=== PATIENT | male | born 1965 | race Hispanic/Latino ===

== ENCOUNTER 2018-07-29 11:49 | Emergency (ER) | payer OTHER ==
[2018-07-29] MEDS ORDERED: FENTANYL CITR 100 MCG/2 ML ONE (12:30)
[2018-07-29] MEDS ORDERED: NA CHLORIDE 0.9% 1,000 ML ONE (12:30)
[2018-07-29] MEDS ORDERED: CEFAZOLIN/SWI 1gm 1 GM/10 ML SYR ONE (12:31)
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
[2018-07-29 13:23] LABS: Absolute Lymphocytes (CBC) 2.1 K/uL (0.7-4.9); Absolute Monocytes 0.5 K/uL (0.1-1.3); Basophils % 0.5 % (0-1.3); Eosinophils % 1.5 % (0-4.4); Hematocrit 46.5 % (39.6-49.0); Lymphocytes % 23.9 % (15.3-44.8); MCH 30.1 pg (27.0-35.0); MCV 87.4 fL (80-100); MPV 9.2 fL (7.6-11.3); RBC Red Blood Cell Count 5.32 M/uL (4.33-5.43)
[2018-07-29 13:24] LABS: Potassium 3.4 mmol/L (3.5-5.1)
[2018-07-29] MEDS ORDERED: TETANUS & DIPHTHERIA TOX,ADULT 0.5 ML VIAL ONE (13:31)
[2018-07-29 14:23] VITALS: TEMP 97.9
[2018-07-29 14:25] VITALS: O2SAT 99
[2018-07-29 14:27] VITALS: BP 145/86
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
== END 2018-07-29 14:05 | disposition home or self-care (01) ==
LOC: ER 11:49
PROC: 0HQEXZZ Repair Left Lower Arm Skin, External Approach (ICD-10-PCS; principal; 2018-07-29)
DX: S51.812A Laceration without foreign body of left forearm, initial encounter (principal); S80.219A Abrasion, unspecified knee, initial encounter; E11.9 Type 2 diabetes mellitus without complications; V49.49XA Driver injured in collision with other motor vehicles in traffic accident, initial encounter
CPT/HCPCS: 36415; 70450; 71260; 72125; 74177; 80048; 85025; 86850; 86900; 86901; 90714; 96365; 96375; 99284; J0690; J3010; J7030; Q9967

== ENCOUNTER 2024-03-01 09:19 | Emergency (ER) | payer BC ==
--- OUTSIDE RECORDS SUMMARY | 2024-03-01 09:23 | XMS REPORT | Continuity of Care Document ---
Author Name Unknown Address [address] [place] [address] [facility] thconnect Address [address] [facility] [address] [place] [address] Care Team Providers Care Flume Tender Name Role Phone Andrea Simon DO Attending Clinician [phone] Dick Kelley MD Attending Clinician [phone] ANDREA SIMON Attending Clinician Unavailable Payers Payer Name Policy Type Policy Number Effective Date Expirati on Date Source [facility] [id number] 2014 00:00:00 [facility] [employer] [id number] 00:00:00 Problems Condition Name Condition Details Condition Category Status Onset Date Resolution Date Last Treatment Date Treating Clinician Comments Source Morbid obesity with body mass index of 50 or higher Morbid obesity with body mass index of 50 or higher Disease Active 03-11 00:00: 00 [facility] Allergies, Adverse Reactions, Alerts Allergy Name Allergy Type Status Severity Reaction(s) Onset Date Inactive Date Treating Clinician Comments Source Tree Nuts Propensi ty to adverse reaction s Active Rash 2014-11 00:00: 00 [facility] TREE NUTS Food Active Rash 2014-11 00:00: 00 [facility] Social History Social Habit Start Date Stop Date Quantity Comments Source Sex Assigned At [facility] Exposure to SARS-CoV-2 (event) Not sure [facility] Smoking Status Start Date Stop Date Source Unknown if ever smoked [facility]ive [facility] Medications Ordered Medication Name Filled Medication Name Start Date Stop Date Current Medication? Ordering Clinician Indication Dosage Frequency Signature (SIG) Comments Components Source insulin regular human (HUMULIN R) injection 10 Units 04-08 23:07: 00 04-08 23:08 :00 No 10U 10 Units, Subcutaneo us, ONCE, 1 dose, Tu04/08/20 at 1815, Routine [facility] glipiZIDE XL 10 mg 24 hr tablet 04-08 00:00: 00 Yes [id number] 10mg Take 1 tablet by mouth daily with breakfast. [facility] acetaminoph en-codeine (TYLENOL-CO DEINE #3) 300-30 mg tablet 08-08 00:00: 00 Yes 1{tbl} Take 1 tablet by mouth every 4 (four) hours as needed for Pain (scale 4-6). [facility] traMADOL (ULTRAM) 50 mg tablet 06-01 00:00: 00 Yes 50mg Take 1 tablet by mouth every 6 (six) hours as needed for Pain (scale 7-10). [facility] pantoprazol e (PROTONIX) 40 mg EC tablet 06-01 00:00: 00 Yes 40mg Take 1 tablet by mouth daily. [facility] ondansetron (ZOFRAN) 4 mg tablet 06-01 00:00: 00 Yes 4mg Take 1 tablet by mouth every 8 (eight) hours as needed for Nausea and Vomiting (N/V). [facility] ondansetron (ZOFRAN) 4 mg tablet 2015-11 00:00: 00 Yes 4mg Take 1 tablet by mouth as needed for Nausea and Vomiting (N/V) (TO MAX OF EVERY 4 HOURS). [facility] loperamide (ANTI-DIARR HEAL, LOPERAMIDE, ) 2 mg capsule 2015-11 00:00: 00 Yes 2mg Take 1 capsule by mouth as needed for Diarrhea (TAKE 2 FOR THE 1ST DOSE THEN 1 EVERY LOOS BM TO A MAX OF 8 IN 24 HOURS). [facility] traMADOL (ULTRAM) 50 mg tablet 2014-11 00:00: 00 Yes 50mg Take 1 Tab by mouth every 6 (six) hours as needed for Pain (scale 4-6). [facility] Vital Signs Vital Name Observation Time Observation Value Comments S ource Systolic blood pressure 2020-04-09 00:58:00 113 mm[Hg] [facility] Diastolic blood pressure 2020-04-09 00:58:00 72 mm[Hg] [facility] Heart rate 2020-04-09 00:58:00 90 /min [facility] Respiratory rate 2020-04-09 00:58:00 17 /min [facility] Oxygen saturation in Arterial blood by Pulse oximetry 2020-04-09 00:58:00 98 /min [facility] Body temperature 2020-04-08 22:47:57 37.06 Sarah [facility] Body height 2020-04-08 22:43:00 170.2 cm [facility] Body weight 2020-04-08 22:43:00 110.224 kg [facility] BMI 2020-04-08 22:43:00 38.06 kg/m2 [facility] Procedures Procedure Date / Time Performed Performing Clinicia n Source BASIC METABOLIC PANEL (NA, K, CL, CO2, GLUCOSE, BUN, CREATININE, CA) 2020-04-09 01:37:00 Dick Kelley [facility] POCT GLUCOSE (AUTOMATED) 2020-04-09 00:14:00 Andrea Simon [facility] POCT GLUCOSE (AUTOMATED) 2020-04-08 22:52:00 Andrea Simon [facility] NOTICE OF PRIVACY PRACTICES 2020-04-08 22:33:34 Doctor Unassigned, Ellis [facility] Encounters Start Date/Time End Date/Time Encounter Type Admission Type Attending Clinicians Care Facility Care Department Encounter ID Source 2020-04-08 17:46:30 2020-04-08 21:36:00 Emergency Andrea Simon [facility] [id number] [facility] 2020-04-08 17:34:00 2020-04-08 17:34:00 Emergency X ANDREA SIMON [facility] ERT [id number] [facility] Results Test Description Test Time Test Comments Results Result Co mments Source [facility] GLUCOSE (AUTOMATED)2020-04-09 00:16:00* Test Item Value Reference Range Interpretation Comme nts POCT GLU (test code = [id number]) 478 mg/dL 70-110 Lab Interpretation (test cod e = 38925-8) Abnormal [facility] GLUCOSE (AUTOMATED)2020-04-08 22:54:00* Test Item Value Reference Range Interpretation Comme [facility] POCT GLU (test code = [id number]) 527 mg/dL 70-110 HH Notified Provide r Lab Interpretation (test code = 28064-2) Abnormal [facility]
[2024-03-01 10:44] LABS: Absolute Basophils 0.1 K/uL (0-0.5); Absolute Eosinophils 0.2 K/uL (0-0.5); Absolute Lymphocytes (CBC) 1.6 K/uL (0.7-4.9); Absolute Monocytes 0.6 K/uL (0.1-1.3); Absolute Neutrophil 6.9 K/uL (1.8-8.0); Basophils % 0.6 % (0-1.3); Eosinophils % 2.1 % (0-4.4); Hematocrit 50.8 % (39.6-49.0); Hemoglobin 17.1 g/dL (13.6-17.9); Lymphocytes % 16.7 % (15.3-44.8); MCH 29.5 pg (27.0-35.0); MCHC 33.6 g/dL (32.0-36.0); MCV 87.5 fL (80-100); MPV 7.8 fL (7.6-11.3); Monocytes % 6.4 % (3.3-12.3); Neutrophils % 74.2 % (41.7-73.7); Platelets 298 thou/uL (152-406); RBC Red Blood Cell Count 5.81 M/uL (4.33-5.43); Red Cell Distribution Width 13.1 % (12.1-15.2)
[2024-03-01 11:01] LABS: Anion Gap 8.2 mEq/L (5.0-15.0); Bilirubin Total 0.7 mg/dL (0.2-1.0); Potassium 4.2 mEq/L (3.5-5.1)
--- NOTE | 2024-03-01 12:02 | RAD REPORT ---
EXAM DESCRIPTION: CT - Abdomen Pelvis W Contrast - 03/01/2024 11:20 am CLINICAL HISTORY: ABD PAIN COMPARISON: Head C Spine Cap W Con dated 07/29/2018 TECHNIQUE: Thin cut axial CT imaging of the abdomen and pelvis was performed following intravenous a dministration of 100 mL Isovue 300. Multiplanar reformats were generated and reviewed. All CT scans are performed using dose optimization technique as appropriate and may include automated exposure control or mA/KV adjustment according to patient size. FINDINGS: No suspicious findings in the lung bases. The liver, spleen, adrenal glands, and pancreas show no suspicious findings. Gallbladder and biliary tree are also without suspicious finding. Symmetric renal function is seen with no hydronephrosis or suspicious renal mass. No dilated bowel loops or bowel wall thickening. No free air, free fluid or inflammatory stranding. N o hernia, mass or bulky lymphadenopathy. The urinary bladder is without significant finding. Moderate to large prostatomegaly. No suspicious bony findings. IMPRESSION: No acute intra-abdominal process. Prostatomegaly
--- NOTE | 2024-03-01 12:22 | ER ---
Nurse's Notes [facility] Name: Won Kern Age: 58 yrs Sex: Male : 1965 Arrival Date: 03/01/2024 Time: 09:19 Bed 20 Private MD: Diagnosis: Low back pain Presentation: 03/01 10:17 Chief complaint: Patient states: Right flank pain. Coronavirus screen: At this time, mg7 the client does not indicate any symptoms associated with coronavirus-19. Ebola Screen: No symptoms or risks identified at this time. Initial Sepsis Screen: Does the patient meet any 2 criteria? No. Patient's initial sepsis screen is negative. Does the patient have a suspected source of infection? No. Patient's initial sepsis screen is negative. Risk Assessment: Do you want to hurt yourself or someone else? Patient reports no desire to harm self or others. Onset of symptoms was February 21, 2024. 10:17 Acuity: AME 3 mg7 10:17 Method Of Arrival: Ambulatory mg7 Triage Assessment: 10:17 General: Behavior is calm, cooperative. mg7 Historical: - Allergies: 09:45 No Known Drug Allergies; mg7 - Immunization history:: Adult Immunizations up to date. - Infectious Disease History:: Denies. - Social history:: Smoking status: Patient denies any tobacco usage or history of. Patient/guardian denies using alcohol, street drugs, tobacco products. - Family history:: not pertinent. - Hospitalizations: : No recent hospitalization is reported. Screenin:45 [facility] ED Fall Risk Assessment (Adult) History of falling in the last 3 months, mg7 including since admission No falls in past 3 months (0 pts). 09:45 Abuse screen: Denies threats or abuse. Denies injuries from another. Nutritional mg7 screening: No deficits noted. Tuberculosis screening: No symptoms or risk factors identified. Assessment: 09:41 General: Appears in no apparent distress. comfortable, Reports Right flank pain since mg7 02/21/24; patient states symptoms began when he picked up a battery and felt like "his kidney will explode out of his body". Pain: Complains of pain in right mid back. Pain: Alleviated by Patient states he is unable to lay on his right side due to pain. Neuro: No deficits noted. Cardiovascular: No deficits noted. Respiratory: No deficits noted. GI: No deficits noted. : No deficits noted. EENT: No deficits noted. Derm: No deficits noted. Musculoskeletal: No deficits noted. 11:00 Reassessment: Reassessment: No changes from previously documented assessment. mg7 Vital Signs: 09:45 BP 149 / 75; Pulse 72; Resp 16; Temp 98; Pulse Ox 96% on R/A; Pain 8/10; mg7 11:07 BP 135 / 69; Pulse 72; Resp 16; Pulse Ox 98% on R/A; mg7 12:30 BP 132 / 72; Pulse 70; Resp 16; Temp 98; Pulse Ox 99% on R/A; mg7 09:45 Pain Scale: Adult mg7 ED Course: 09:27 Patient arrived in ED. mg5 09:28 Tod Zavala MD is Attending Physician. rn 09:34 Alicia Santos RN is Primary Nurse. mg7 09:45 Patient has correct armband on for positive identification. Call light in reach. Side mg7 rails up X 1. 09:45 No provider procedures requiring assistance completed. mg7 10:19 Triage completed. mg7 11:00 Patient notified of wait time. mg7 11:00 intact, No redness/swelling at site. mg7 11:06 CT Abd/Pelvis - IV Contrast Only Sent. mg7 11:22 CT Abd/Pelvis - IV Contrast Only In Process Unspecified. EDMS 12:36 Provided Education on: discharge instruction. mg7 Administered Medications: No medications were administered Medication: 09:45 VIS not applicable for this client. mg7 Outcome: 11:00 Discharged to home ambulatory, mg7 11:00 Condition: good 11:00 Discharge instructions given to patient, Demonstrated understanding of instructions, follow-up care, 12:21 Discharge ordered by . rn 12:39 Patient left the ED. mg7 Signatures: Dispatcher [employer] EDMS Tod Zavala MD MD rn Gardner Martha mg5 Alicia Santos, FAROOQ RN mg7 Corrections: (The following items were deleted from the chart) 09:49 09:45 PMHx: PTSD; mg7 mg7 09:49 09:45 PMHx: Diabetes - NIDDM; mg7 mg7
--- NOTE | 2024-03-01 12:22 | EDPHYS ---
Physician Documentation [facility] Name: Won Kern Age: 58 yrs Sex: Male : 1965 Arrival Date: 03/01/2024 Time: 09:19 Bed 20 Private MD: ED Physician Tod Zavala HPI: 03/01 11:15 This 58 yrs old Male presents to ER via Ambulatory with complaints of Flank rn Pain. 11:15 The patient complains of pain in the right mid back and right low back. The pain does rn not radiate. 11:15 Onset: The symptoms/episode began/occurred 1 week(s) ago. Modifying factors: The rn symptoms are alleviated by nothing. the symptoms are aggravated by movement. Severity of pain: At its worst the pain was moderate in the emergency department the pain has improved. The patient has not experienced similar symptoms in the past. The patient has been recently seen by a physician:. Patient reports right flank pain that began after lifting a battery at home. Had pain immediately after lifting battery. Started approximately 1 week ago. Seen at [place] emergency room the day it happened and had CT and ultrasound that were negative. Blood work and urine were negative as well. Presents today because still has right flank pain. Pain is improving but not gone completely. Worse with movement and palpation.. Historical: - Allergies: 09:45 No Known Drug Allergies; mg7 - Immunization history:: Adult Immunizations up to date. - Infectious Disease History:: Denies. - Social history:: Smoking status: Patient denies any tobacco usage or history of. Patient/guardian denies using alcohol, street drugs, tobacco products. - Family history:: not pertinent. - Hospitalizations: : No recent hospitalization is reported. ROS: 11:15 Constitutional: Negative for fever, chills, and weight loss, Cardiovascular: Negative rn for chest pain, palpitations, and edema, Respiratory: Negative for shortness of breath, cough, wheezing, and pleuritic chest pain, Abdomen/GI: Negative for abdominal pain, nausea, vomiting, diarrhea, and constipation, Back: Positive for right flank pain : Negative for injury, bleeding, discharge, and swelling, MS/Extremity: Negative for injury and deformity, Skin: Negative for injury, rash, and discoloration, Neuro: Negative for headache, weakness, numbness, tingling, and seizure, Exam: 11:15 Constitutional: This is a well developed, well nourished patient who is awake, alert, rn and in no acute distress. Ambulatory to room without difficulty or assistance Cardiovascular: Regular rate and rhythm. No pulse deficits. Respiratory: No increased work of breathing, no retractions or nasal flaring. Abdomen/GI: Soft, nontender, negative Becerra, negative rebound Back: No spinal tenderness. No costovertebral tenderness. Full range of motion. MS/ Extremity: Pulses equal, no cyanosis. Neurovascular intact. Full, normal range of motion. Equal circumference. Neuro: Awake and alert, GCS 15 Vital Signs: 09:45 BP 149 / 75; Pulse 72; Resp 16; Temp 98; Pulse Ox 96% on R/A; Pain 8/10; mg7 11:07 BP 135 / 69; Pulse 72; Resp 16; Pulse Ox 98% on R/A; mg7 12:30 BP 132 / 72; Pulse 70; Resp 16; Temp 98; Pulse Ox 99% on R/A; mg7 09:45 Pain Scale: Adult mg7 MDM: 09:28 Patient medically screened. rn 12:20 Differential diagnosis: nephrolithiasis, pyelonephritis, UTI, pancreatitis. rn Differential diagnosis: muscle strain. Data reviewed: vital signs, nurses notes. Data reviewed: lab test result(s), radiologic studies, CT scan, and as a result, I will discharge patient. Counseling: I had a detailed discussion with the patient and/or guardian regarding the historical points, exam findings, and any diagnostic results supporting the discharge/admit diagnosis, lab results, radiology results, the need for outpatient follow up, to return to the emergency department if symptoms worsen or persist or if there are any questions or concerns that arise at home. Response to treatment: the patient's symptoms have mildly improved after treatment, and as a result, I will discharge patient. Special discussion: I discussed with the patient/guardian in detail that at this point there is no indication for admission to the hospital. It is understood, however, that if the symptoms persist or worsen the patient needs to return immediately for re-evaluation. 03/01 10:15 Order name: CBC with Diff; Complete Time: 11:14 rn 03/01 10:15 Order name: CMP; Complete Time: 11:14 rn 03/01 10:15 Order name: Lipase; Complete Time: 11:14 rn 03/01 10:15 Order name: CT Abd/Pelvis - IV Contrast Only; Complete Time: 12:10 rn 03/01 10:15 Order name: IV Saline Lock; Complete Time: 11:05 rn 03/01 10:15 Order name: Labs collected and sent; Complete Time: 11:06 rn Administered Medications: No medications were administered Disposition Summary: 03/01/24 12:21 Discharge Ordered Notes: Location: Home rn Problem: new rn Symptoms: have improved rn Condition: Stable rn Diagnosis - Low back pain rn Followup: rn - With: Private Physician - When: As needed - Reason: Recheck today's complaints, Re-evaluation by your physician Discharge Instructions: - Discharge Summary Sheet rn - Acute Back Pain, Adult rn - Musculoskeletal Pain rn Forms: - Medication Reconciliation Form rn - Thank You Letter rn - Antibiotic shift supervisor rn - Prescription Opioid Use rn - Patient Portal Instructions rn - Leadership Thank You Letter rn - Work release form mg7 Signatures: Dispatcher [employer] EDTod Stone MD MD rn Gilbert, Melissa, RN RN mg7 Corrections: (The following items were deleted from the chart) 09:49 09:45 PMHx: PTSD; mg7 mg7 09:49 09:45 PMHx: Diabetes - NIDDM; mg7 mg7
[2024-03-01 12:46] VITALS: TEMP 98
[2024-03-01 13:25] VITALS: BP 132/72; O2SAT 99
== END 2024-03-01 12:39 | disposition home or self-care (01) ==
LOC: ER 09:19
DX: M54.50 Low back pain, unspecified (principal); R10.9 Unspecified abdominal pain
CPT/HCPCS: 85025; 36415; 83690; 80053; 74177; 99283; Q9967